=== PATIENT | male | born 1960 | race Caucasian/White ===

== ENCOUNTER 2024-07-04 12:04 | Emergency (ER) | payer MEDICARE ==
[~2024-07-04] VITALS: Ht 180.3 cm; Wt 108.9 kg
[2024-07-04 12:20] VITALS: TEMP 98.2
[2024-07-04 13:00] VITALS: PULSE 93; RESP 14
[2024-07-04 14:18] VITALS: BP 117/84; PULSE 68; RESP 16; TEMP 98; O2SAT 98
== END 2024-07-04 14:15 | disposition home or self-care (01) ==
LOC: ER 12:11
DX: S00.83XA Contusion of other part of head, initial encounter (principal); S20.214A Contusion of middle front wall of thorax, initial encounter; W01.0XXA Fall on same level from slipping, tripping and stumbling without subsequent striking against object, initial encounter; Y93.01 Activity, walking, marching and hiking; Y92.89 Other specified places as the place of occurrence of the external cause; I10 Essential (primary) hypertension; E11.9 Type 2 diabetes mellitus without complications; E78.5 Hyperlipidemia, unspecified; I50.9 Heart failure, unspecified; K76.9 Liver disease, unspecified; G20.A1 Parkinson's disease without dyskinesia, without mention of fluctuations; M54.9 Dorsalgia, unspecified; G89.29 Other chronic pain
CPT/HCPCS: 70450; 71045; 99284

== ENCOUNTER 2024-08-23 18:06 | Inpatient (IN) | payer MEDICARE, OTHER ==
[~2024-08-23] VITALS: Ht 177.8 cm; Wt 89.8 kg
[2024-08-23 19:04] LABS: BASOPHILS % 0.2 % (0.0-1.0); EOSINOPHILS # (AUTO) 0.2 (0.0-0.4); EOSINOPHILS % 5.7 % (0.0-6.0); HEMATOCRIT 29.7 % (38.2-49.6); HEMOGLOBIN 9.7 g/dL (14.0-18.0); LYMPHOCYTES % 23.3 % (18.0-39.1); MEAN CORPUSCULAR HEMOGLOBIN 29.1 pg (28-32); MEAN CORPUSCULAR HGB CONC 32.7 g/dL (31-35); MEAN CORPUSCULAR VOLUME 89.2 fL (81-99); MONOCYTES # (AUTO) 0.6 (0.2-0.8); MONOCYTES % 13.1 % (4.4-11.3); NEUTROPHILS # (AUTO) 2.4 (2.1-6.9); NEUTROPHILS % 57.5 % (38.7-80.0); RED BLOOD COUNT 3.33 x10e6/uL (4.3-5.7); RED CELL DISTRIBUTION WIDTH 16.1 % (11.7-14.4); WHITE BLOOD COUNT 4.21 x10e3/uL (4.8-10.8)
[2024-08-23 19:07] VITALS: PULSE 60; RESP 19; TEMP 98.2
[2024-08-23 19:10] LABS: PLATELET COUNT 42 x10e3/uL (140-360)
[2024-08-23 19:25] LABS: ALBUMIN 3.8 g/dL (3.5-5.0); ALBUMIN/GLOBULIN RATIO 1.2 (0.8-2.0); ANION GAP 19.6 mmol/L (8-16); BILIRUBIN,TOTAL 0.4 mg/dL (0.2-1.2); CALCIUM 8.7 mg/dL (8.4-10.2); CREATININE, SERUM 3.91 mg/dL (0.72-1.25); POTASSIUM 3.6 mmol/L (3.5-5.1)
[2024-08-23] MEDS ORDERED: DEXTROSE 50% SYRINGE 50 ML IV PRN (20:45)
[2024-08-23] MEDS ORDERED: ONDANSETRON HCL INJ 2MG/ML 2ML 2 MG/ML VIAL IV PRN (20:45)
[2024-08-23] MEDS: INSULIN REGULAR, HUMAN 100 UNIT/1 ML SQ SCH (21:00)
[2024-08-23 21:03] LABS: BILIRUBIN,URINE NEGATIVE (NEGATIVE); CLARITY,URINE SL CLOUDY (CLEAR); COLOR,URINE YELLOW (YELLOW); GLUCOSE, URINE NEGATIVE (NEGATIVE); KETONES,URINE TRACE (NEGATIVE); LEUKOCYTE ESTERASE ,URINE NEGATIVE (NEGATIVE); NITRITE,URINE NEGATIVE (NEGATIVE); PH,URINE 5.5 (5 - 7); PROTEIN,URINE DIPSTICK NEGATIVE (NEGATIVE); URINE UROBILINOGEN 0.2 mg/dL (0.2 - 1)
[2024-08-23] MEDS: SODIUM CHLORIDE 0.9% 1000ML 1,000 ML IV ONE (21:06)
[2024-08-23 21:45] VITALS: BP 112/75; PULSE 61; RESP 20; TEMP 97.9; O2SAT 94
[2024-08-23] MEDS ORDERED: AMLODIPINE BESY10 MG PO (22:21)
[2024-08-23] MEDS ORDERED: DIVALPROEX SOD125 M1 PO (22:21)
[2024-08-23] MEDS ORDERED: ENULOSE10 GM/15 M PO (22:21)
[2024-08-23] MEDS ORDERED: ALLOPURINOL100 MG PO (22:21)
[2024-08-23] MEDS ORDERED: AMANTADINE100 M1 PO (22:21)
[2024-08-23] MEDS ORDERED: FUROSEMIDE40 MG PO (22:29)
[2024-08-23] MEDS ORDERED: FEROSUL325 MG PO (22:29)
[2024-08-23] MEDS ORDERED: FOLIC ACID-VIT1 EACH PO (22:29)
[2024-08-23] MEDS ORDERED: HYDROXYZINE HCL25 MG PO (22:29)
[2024-08-23] MEDS ORDERED: FLOMAX0.4 MG PO (22:29)
[2024-08-23] MEDS ORDERED: METFORMIN HCL500 MG PO (22:29)
[2024-08-23] MEDS ORDERED: NEURONTIN100 MG PO (22:29)
[2024-08-23] MEDS ORDERED: METOPROLOL TART25 MG PO (22:29)
[2024-08-23] MEDS ORDERED: XIFAXAN550 MG PO (22:29)
[2024-08-23 23:23] VITALS: BP 93/75; PULSE 59; RESP 20; TEMP 98.2; O2SAT 100
[2024-08-23 23:48] VITALS: PULSE 75; RESP 16; O2SAT 96
[2024-08-24] VITALS (11 sets, daily range): BP systolic 93–140; BP diastolic 70–90; PULSE 59–76; RESP 16–20; TEMP 96.5–98.6; O2SAT 95–100
[2024-08-24 05:33] LABS: BASOPHILS % 0.4 % (0.0-1.0); EOSINOPHILS # (AUTO) 0.2 (0.0-0.4); EOSINOPHILS % 6.1 % (0.0-6.0); HEMATOCRIT 28.4 % (38.2-49.6); HEMOGLOBIN 9.5 g/dL (14.0-18.0); LYMPHOCYTES # (AUTO) 0.5 (1.0-3.2); LYMPHOCYTES % 21.5 % (18.0-39.1); MEAN CORPUSCULAR HEMOGLOBIN 29.7 pg (28-32); MEAN CORPUSCULAR HGB CONC 33.5 g/dL (31-35); MEAN CORPUSCULAR VOLUME 88.8 fL (81-99); MONOCYTES # (AUTO) 0.3 (0.2-0.8); NEUTROPHILS # (AUTO) 1.5 (2.1-6.9); NEUTROPHILS % 60.6 % (38.7-80.0); RED CELL DISTRIBUTION WIDTH 15.4 % (11.7-14.4); WHITE BLOOD COUNT 2.46 x10e3/uL (4.8-10.8)
[2024-08-24 05:57] LABS: PLATELET COUNT 33 x10e3/uL (140-360)
[2024-08-24 06:01] LABS: ALBUMIN 3.5 g/dL (3.5-5.0); ALBUMIN/GLOBULIN RATIO 1.1 (0.8-2.0); ANION GAP 16.6 mmol/L (8-16); BILIRUBIN,TOTAL 0.6 mg/dL (0.2-1.2); CALCIUM 8.6 mg/dL (8.4-10.2); CREATININE, SERUM 2.81 mg/dL (0.72-1.25); POTASSIUM 3.6 mmol/L (3.5-5.1); TOTAL PROTEIN 6.7 g/dL (6.5-8.1)
[2024-08-24 06:28] LABS: TROPONIN I 0.025 ng/mL (0-0.300)
[2024-08-24] MEDS ORDERED: ACETAMINOPHEN 325 MG TAB PO PRN (09:45)
[2024-08-24] MEDS: DIVALPROEX SODIUM 125 MG TABDR...ER PO SCH (10:27)
[2024-08-24] MEDS: SODIUM CHLORIDE 0.9% 1000ML 1,000 ML IV SCH (10:27)
[2024-08-24] MEDS: HYDROXYZINE HCL 25 MG TAB PO SCH (10:27)
[2024-08-24] MEDS: LORATADINE 10 MG TAB PO SCH (10:27)
[2024-08-24] MEDS: ALLOPURINOL 100 MG TAB PO SCH (10:27)
[2024-08-24] MEDS: RIFAXIMIN 550 MG TABLET PO SCH (10:27)
[2024-08-24] MEDS: GABAPENTIN 100 MG CAP PO SCH (14:57)
[2024-08-24] MEDS: AMANTADINE HCL 100 MG CAP PO SCH (17:01)
[2024-08-24] MEDS: TAMSULOSIN HCL 0.4 MG CAP PO SCH (17:01)
[2024-08-25 03:04] VITALS: BP 161/90; PULSE 88; RESP 18; TEMP 97.8; O2SAT 100
[2024-08-25 06:47] LABS: BASOPHILS % 0.3 % (0.0-1.0); EOSINOPHILS # (AUTO) 0.2 (0.0-0.4); EOSINOPHILS % 6.9 % (0.0-6.0); HEMATOCRIT 33.7 % (38.2-49.6); HEMOGLOBIN 11.1 g/dL (14.0-18.0); LYMPHOCYTES # (AUTO) 0.7 (1.0-3.2); LYMPHOCYTES % 21.6 % (18.0-39.1); MEAN CORPUSCULAR HEMOGLOBIN 29.2 pg (28-32); MEAN CORPUSCULAR HGB CONC 32.9 g/dL (31-35); MEAN CORPUSCULAR VOLUME 88.7 fL (81-99); MONOCYTES # (AUTO) 0.4 (0.2-0.8); MONOCYTES % 10.8 % (4.4-11.3); NEUTROPHILS % 60.1 % (38.7-80.0); RED CELL DISTRIBUTION WIDTH 15.5 % (11.7-14.4); WHITE BLOOD COUNT 3.33 x10e3/uL (4.8-10.8)
[2024-08-25 06:53] LABS: PLATELET COUNT 40 x10e3/uL (140-360)
[2024-08-25 07:16] LABS: ALBUMIN/GLOBULIN RATIO 1.1 (0.8-2.0); ANION GAP 16.8 mmol/L (8-16); CALCIUM 9.5 mg/dL (8.4-10.2); CREATININE, SERUM 1.46 mg/dL (0.72-1.25); MAGNESIUM 1.5 MG/DL (1.3-2.1); PHOSPHORUS 3.1 MG/DL (2.3-4.7); POTASSIUM 3.8 mmol/L (3.5-5.1); TOTAL PROTEIN 7.7 g/dL (6.5-8.1)
[2024-08-25 07:32] LABS: TROPONIN I 0.01 ng/mL (0-0.300)
[2024-08-25 07:35] LABS: THYROID STIMULATING HORMONE 3.828 uIU/mL (0.350-4.940)
[2024-08-25 08:56] VITALS: BP 112/109; PULSE 89; RESP 18; TEMP 98; O2SAT 96
[2024-08-25 10:02] VITALS: BP 112/109; PULSE 89; RESP 18; TEMP 98; O2SAT 96
[2024-08-25 11:38] VITALS: BP 121/84; PULSE 83; RESP 19; TEMP 98; O2SAT 100
[2024-08-25] MEDS: DIPHENHYDRAMINE HCL 25 MG CAP PO PRN (12:30)
[2024-08-25] MEDS ORDERED: HYDROCORTISONE 1% CREAM 30 GM TUBE TOP PRN (12:30)
[2024-08-25] MEDS: HYDROCORTISONE 2.5% CREAM 30GM TUBE TOP PRN (14:22)
[2024-08-25 15:49] VITALS: BP 141/83; PULSE 67; RESP 18; TEMP 98.3; O2SAT 99
[2024-08-25 20:00] VITALS: BP 160/88; PULSE 73; RESP 20; TEMP 98; O2SAT 100
[2024-08-26] VITALS (7 sets, daily range): BP systolic 134–152; BP diastolic 74–112; PULSE 72–82; RESP 18–20; TEMP 98.1–98.7; O2SAT 90–100
[2024-08-26 08:45] LABS: ANION GAP 14.5 mmol/L (8-16); CALCIUM 9.2 mg/dL (8.4-10.2); CREATININE, SERUM 1.04 mg/dL (0.72-1.25); POTASSIUM 3.5 mmol/L (3.5-5.1)
[2024-08-27] VITALS: BP 122/85; PULSE 90; RESP 18; TEMP 98.3; O2SAT 95
[2024-08-27 04:00] VITALS: BP 134/87; PULSE 90; RESP 20; TEMP 97.6; O2SAT 96
[2024-08-27 07:48] VITALS: BP 169/94; PULSE 100; RESP 18; TEMP 98.6; O2SAT 95
[2024-08-27 11:32] VITALS: BP 131/80; PULSE 84; RESP 18; TEMP 98.5; O2SAT 97
[2024-08-27 20:00] VITALS: BP 142/99; PULSE 83; RESP 20; TEMP 98.9; O2SAT 100
[2024-08-28] VITALS: BP 153/90; PULSE 71; RESP 20; TEMP 98.5; O2SAT 98
[2024-08-28 04:00] VITALS: BP 162/103; PULSE 92; RESP 20; TEMP 98.7; O2SAT 98
[2024-08-28 09:21] VITALS: BP 162/103; PULSE 92; RESP 20; TEMP 98.7; O2SAT 98
[2024-08-28 09:30] VITALS: BP 155/95; PULSE 97; RESP 20; TEMP 98.8; O2SAT 97
[2024-08-28] MEDS: POTASSIUM CHLORIDE 20 MEQ TAB CR PO ONE (12:27)
[2024-08-28 12:34] VITALS: BP 164/99; PULSE 103; RESP 20; TEMP 98.7; O2SAT 98
[2024-08-28] MEDS ORDERED: ONDANSETRON HCL 4 MG ORAL DISINTEGRATING TAB PO PRN (14:00)
== END 2024-08-28 14:55 | DRG 682 ==
LOC: ER 18:32 → ERHOLD 20:31 → MED/SURG3 21:31
PROVIDERS: ADMIT Internal Medicine; ATTEND Internal Medicine
DX: N17.0 Acute kidney failure with tubular necrosis (principal); R57.8 Other shock; I13.0 Hypertensive heart and chronic kidney disease with heart failure and stage 1 through stage 4 chronic kidney disease, or unspecified chronic kidney disease; K76.6 Portal hypertension; I85.10 Secondary esophageal varices without bleeding; I50.32 Chronic diastolic (congestive) heart failure; F02.811 Dementia in other diseases classified elsewhere, unspecified severity, with agitation; F01.511 Vascular dementia, unspecified severity, with agitation; E86.0 Dehydration; I95.2 Hypotension due to drugs; T46.5X5A Adverse effect of other antihypertensive drugs, initial encounter; Y92.122 Bedroom in nursing home as the place of occurrence of the external cause; E11.22 Type 2 diabetes mellitus with diabetic chronic kidney disease; N18.2 Chronic kidney disease, stage 2 (mild); K74.60 Unspecified cirrhosis of liver; D69.59 Other secondary thrombocytopenia; L74.0 Miliaria rubra; G20.A1 Parkinson's disease without dyskinesia, without mention of fluctuations; R55 Syncope and collapse; R53.81 Other malaise; E78.5 Hyperlipidemia, unspecified; I89.0 Lymphedema, not elsewhere classified; N40.0 Benign prostatic hyperplasia without lower urinary tract symptoms; Z86.19 Personal history of other infectious and parasitic diseases; Z91.81 History of falling; Z79.899 Other long term (current) drug therapy
CPT/HCPCS: 36415; 51700; 70450; 71045; 74176; 76770; 80048; 80053; 81001; 82550; 82607; 82948; 83036; 83540; 83735; 83880; 84100; 84443; 84466; 84484; 85025; 93005; 94799; 99285; J3410; J7030